=== PATIENT | male | born 1950 | race Two or more races ===

== ENCOUNTER 2021-02-20 15:23 | Inpatient (IN) | payer OTHER ==
[~2021-02-20] VITALS: Ht 175.3 cm; Wt 75.3 kg
--- NOTE | 2021-02-20 15:40 | NUR ---
The patient is [id number], from home, noticed blood in the urine x 1 month. Denies pain. No bladder distension noted. Will continue to monitor the patient.
[2021-02-20] MEDS ORDERED: LIDOCAINE 2% JEL UROJET 10 ML MM ONE (16:00)
[2021-02-20] MEDS ORDERED: IV NS 0.9% 1,000 ML IV ONE (16:00)
[2021-02-20 16:46] LABS: BASOPHILS % (AUTO) 0.4 % (0.0-2.0); EOSINOPHILS % (AUTO) 2.3 % (0.0-6.0); HEMATOCRIT 36 % (39-51); HEMOGLOBIN 11.5 g/dL (13.5-17.5); LYMPHOCYTES # (AUTO) 1.8 K/uL (0.8-4.8); LYMPHOCYTES % (AUTO) 18.6 % (20.0-44.0); MEAN CORPUSCULAR HGB CONC 32 g/dl (31.0-36.0); MEAN CORPUSCULAR VOLUME 103 fL (80-96); MONOCYTES # (AUTO) 0.6 K/uL (0.1-1.30); MONOCYTES % (AUTO) 6.5 % (2.0-12.0); NEUTROPHILS % (AUTO) 72.2 % (43.0-81.0); PLATELET COUNT (AUTO) 125 K/uL (150-450); WHITE BLOOD COUNT (AUTO) 9.7 K/uL (4.3-11.0)
--- NOTE | 2021-02-20 16:54 | NUR ---
CALLED NURSING SUP REGARDING MID LINE FOR PT.
--- NOTE | 2021-02-20 17:23 | NUR ---
URINE COLLECTED AND SENT TO THE LAB
[2021-02-20 17:31] LABS: ALANINE AMINOTRANSFERASE 17 U/L (12-78); ALBUMIN 3.5 g/dL (3.4-5.0); ALKALINE PHOSPHATASE 99 U/L (46-116); ASPARTATE AMINOTRANSFERASE 12 U/L (15-37); BILIRUBIN,DIRECT 0.1 mg/dL (0.0-0.2); BILIRUBIN,TOTAL 0.5 mg/dL (0.2-1.0); CALCIUM, SERUM 8.7 mg/dL (8.5-10.1); CARBON DIOXIDE 12 mmol/L (21-32); CHLORIDE 113 mmol/L (98-107); CREATININE 2.1 mg/dL (0.6-1.3); GLUCOSE 109 mg/dL (74-106); LIPASE 386 U/L (73-393); POTASSIUM 4.4 mmol/L (3.5-5.1); SODIUM SERUM 138 mmol/L (136-145); TOTAL PROTEIN, SERUM 6.7 g/dL (6.4-8.2); UREA NITROGEN, BLOOD 51 mg/dL (7-18)
--- NOTE | 2021-02-20 17:34 | NUR ---
CT ABDOMEN PELVIC WO PER DR BERMEO DUE TO CREATININE 2.1. RADIOLOGIST MADE AWARE.
[2021-02-20 17:41] LABS: BILIRUBIN,URINE SMALL (NEGATIVE); COLOR,URINE BROWN (YELLOW); LEUKOCYTE ESTERASE ,URINE MODERATE (NEGATIVE); NITRITE, URINE NEGATIVE (NEGATIVE); PROTEIN,URINE 100 mg/dl (NEGATIVE); UGLUCOSE NEGATIVE (NEGATIVE); UROBILINOGEN,URINE 0.2 EU/dL (0.2)
[2021-02-20 18:38] LABS: MUCUS,URINE Moderate /LPF (None Seen); RBC,URINE 51-80 /HPF (0-2); WBC,URINE 21-50 /HPF (0-3)
[2021-02-20 18:39] LABS: BACTERIA,URINE 3+ /HPF (None Seen); SQUAMOUS EPITHELIAL CELL,UR 0-2 /HPF (None Seen)
[2021-02-20] MEDS ORDERED: CEPH500C2 PO (18:46)
[2021-02-20] MEDS ORDERED: ASPI-1420 PO (18:46)
[2021-02-20] MEDS ORDERED: FOLI0.4T6 PO (18:46)
[2021-02-20] MEDS ORDERED: WARF-68 PO (18:46)
[2021-02-20] MEDS ORDERED: CARV25TA2 PO (18:46)
[2021-02-20] MEDS ORDERED: ATOR10TA PO (18:46)
[2021-02-20] MEDS ORDERED: LOSA25TA27 PO (18:46)
[2021-02-20] MEDS ORDERED: CEFTRIAXONE 1 G in IV D5W 50 ML IV ONE (19:00)
--- NOTE | 2021-02-20 19:14 | NUR ---
COVID SWAB DONE AND SENT TO THE LAB
[2021-02-20 19:19] LABS: BAND % (MANUAL) 1 % (0.0-5.0); EOSINOPHILS % (MANUAL) 1 % (0-4); LYMPHOCYTES % (MANUAL) 14 % (16-48); MONOCYTES % (MANUAL) 3 % (0-11.0); NEUTROPHILS % (MANUAL) 81 (42-76)
[2021-02-20] MEDS ORDERED: CEFTRIAXONE 1GM BAG (ER ONLY) 50 ML IV ONE (19:21)
--- NOTE | 2021-02-20 19:32 | NUR ---
report given to nurse Kitchen
[2021-02-20] MEDS ORDERED: ZOLPIDEM TARTRATE 5 MG TABLET PO PRN (22:30)
[2021-02-20] MEDS ORDERED: ACETAMINOPHEN 325 MG TABLET PO PRN (22:30)
[2021-02-20] MEDS ORDERED: Z GUARD REMEDY 2 OZ OINT TP PRN (22:30)
[2021-02-20] MEDS ORDERED: HYDROCODONE/APAP 5/325MG TABLET PO PRN (22:30)
[2021-02-20] MEDS ORDERED: ONDANSETRON HCL/PF 4 MG/2 ML VIAL IVP PRN (22:30)
--- NOTE | 2021-02-21 00:06 | NUR ---
RICK GLUING MACHINE OPERATOR AUTOMATIC [phone] DIRECT LINE
--- NOTE | 2021-02-21 00:30 | NUR ---
MRSA SWAB COLLECTED AND SENT TO LAB. PATIENT'S BELONGINGS LIST DONE.
--- NOTE | 2021-02-21 00:43 | NUR ---
PER RICK, SENIOR ACCOUNTING SPECIALIST, PT IS AUTHORIZED TO STAY HERE/ AUTH NUMBER# [id number]
--- NOTE | 2021-02-21 01:00 | NUR ---
report given to alvino (wen).
--- NOTE | 2021-02-21 01:31 | NUR ---
pt transferred to 3w.
[2021-02-21 02:15] VITALS: BP 106/61
--- NOTE | 2021-02-21 02:15 | NUR ---
MS BINDERY HELPER NOTE PATIENT WAS RECEIVED AWAKE, BROUGHT TO 3W BY CAROL FROM ER. PATIENT IS A [place]ONG[place] SPEAKER. PATIENT IS A/OX4. NO S/S OF DISTRESS; BREATHING IS SYMMETRICAL. MILD PAIN NOTED AT A 4/10 R/T HIS ADMITTING DX OF HEMATURIA, UTI. PATIENT WAS ORIENTED TO THE UNIT, GIVEN CALL JOHNSON AND EDUCATED ON HOW TO USE IT FOR ANY AND ALL NEEDS PLUS TV USE. NO IVF CURRENTLY, BUT PATIENT DOES HAVE A JANA MIDLINE & RT HAND IV SL #20G. PATIENT'S SKIN IS CLEAN, DRY AND INTACT. LEFT LOWER LEG PROSTHESIS NOTED UPON ASSESSMENT. PATIENT'S BELONGINGS ACCOUNTED FOR. SAFETY MEASURES FOLLOWED: BED AT LOWEST POSITION, RAILS UP X2, CALL JOHNSON WITHIN REACH.
[2021-02-21 04:05] VITALS: BP 106/61
[2021-02-21] MEDS: IV 1/2NS 1000 ML 1,000 ML IV PRN (05:27)
--- NOTE | 2021-02-21 06:59 | NUR ---
MS RN CLOSING NOTE PATIENT IS ASLEEP IN BED. A/OX4. NO S/S OF DISTRESS; NO CIRCULATORY ISSUES PRESENT. NO PAIN NOTED. PATIENT WAS ABLE TO VOID WITH CLEAR, STRAW YELLOW URINE IN URINAL. SAFETY MEASURES IN PLACE: BED AT LOWEST POSITION, RAILS UP X2, CALL JOHNSON WITHIN REACH. WILL ENDORSE TO NEXT SHIFT FOR MARINA.
[2021-02-21] MEDS ORDERED: PANTOPRAZOLE 40 MG TABLET.DR PO SCH (07:30)
--- NOTE | 2021-02-21 07:30 | NUR ---
RN OPENING NOTE- PATIENT IS AWAKE. A/OX4. NO S/S OF DISTRESS; NO CIRCULATORY ISSUES PRESENT. NO PAIN NOTED. VOIDING IN URINAL. . NO PAIN NOTED. SAFETY MEASURES IN PLACE: BED AT LOWEST POSITION, RAILS UP X2, CALL JOHNSON WITHIN REACH. MONITOR / ASSIST .
[2021-02-21 08:00] VITALS: BP 109/59
[2021-02-21 08:03] LABS: BASOPHILS # (AUTO) 0.1 K/uL (0.0-0.2); BASOPHILS % (AUTO) 0.8 % (0.0-2.0); EOSINOPHILS % (AUTO) 3.6 % (0.0-6.0); HEMATOCRIT 31 % (39-51); HEMOGLOBIN 10.2 g/dL (13.5-17.5); LYMPHOCYTES # (AUTO) 1.9 K/uL (0.8-4.8); LYMPHOCYTES % (AUTO) 27.6 % (20.0-44.0); MEAN CORPUSCULAR HGB CONC 33 g/dl (31.0-36.0); MEAN CORPUSCULAR VOLUME 103 fL (80-96); MONOCYTES # (AUTO) 0.4 K/uL (0.1-1.30); MONOCYTES % (AUTO) 6.1 % (2.0-12.0); NEUTROPHILS # (AUTO) 4.4 K/uL (1.8-8.9); NEUTROPHILS % (AUTO) 61.9 % (43.0-81.0); PLATELET COUNT (AUTO) 109 K/uL (150-450); RED BLOOD CELL COUNT(AUTO) 3.02 MIL/uL (4.5-6.0); WHITE BLOOD COUNT (AUTO) 7.1 K/uL (4.3-11.0)
[2021-02-21] MEDS: CARVEDILOL 6.25 MG TABLET PO SCH ×2 (08:45→17:00)
[2021-02-21] MEDS: FOLIC ACID 1 MG TABLET PO SCH (08:45)
[2021-02-21 08:48] LABS: CALCIUM, SERUM 8.4 mg/dL (8.5-10.1); CHLORIDE 120 mmol/L (98-107); CREATININE 1.7 mg/dL (0.6-1.3); GLUCOSE 99 mg/dL (74-106); MAGNESIUM 2.2 mg/dL (1.8-2.4); PHOSPHORUS 3.4 mg/dL (2.5-4.9); POTASSIUM 4.9 mmol/L (3.5-5.1); SODIUM SERUM 141 mmol/L (136-145); UREA NITROGEN, BLOOD 44 mg/dL (7-18)
[2021-02-21] MEDS: LOSARTAN POTASSIUM 25 MG TABLET PO SCH (09:00)
[2021-02-21 09:35] LABS: CARBON DIOXIDE 9 mmol/L (21-32)
[2021-02-21 16:07] VITALS: BP 99/53
[2021-02-21 17:20] LABS: CALCIUM, SERUM 8.3 mg/dL (8.5-10.1); CARBON DIOXIDE 12 mmol/L (21-32); CHLORIDE 117 mmol/L (98-107); CREATININE 1.7 mg/dL (0.6-1.3); GLUCOSE 105 mg/dL (74-106); POTASSIUM 4.2 mmol/L (3.5-5.1); SODIUM SERUM 138 mmol/L (136-145); UREA NITROGEN, BLOOD 43 mg/dL (7-18)
[2021-02-21] MEDS: ATORVASTATIN 10 MG TABLET PO SCH (17:34)
[2021-02-21] MEDS: CEFTRIAXONE 1 G in IV D5W 50 ML IV SCH (18:15)
--- NOTE | 2021-02-21 18:38 | NUR ---
RN CLOSING NOTE- PATIENT IS AWAKE. A/OX4. NO S/S OF DISTRESS; NO CIRCULATORY ISSUES PRESENT. NO PAIN NOTED. VOIDING IN URINAL. . IV ABX ROCEPHIN INFUSED. IVF JANA MIDLINE - 1/2 NS AT 75/HR. NO PAIN NOTED. SAFETY MEASURES IN PLACE: BED AT LOWEST POSITION, RAILS UP X2, CALL JOHNSON WITHIN REACH. MONITOR / ASSIST .
--- NOTE | 2021-02-21 19:25 | NUR ---
RN OPENING NOTE PATIENT IS AWAKE. A/OX4. NO S/S OF DISTRESS; NO CIRCULATORY ISSUES PRESENT. NO PAIN NOTED.NO RESPIRATORY DISTRESS NOTED.SAFETY MEASURES IN PLACE: BED AT LOWEST POSITION, RAILS UP X2, CALL JOHNSON WITHIN REACH. WILL CONTINUE TO MONITOR.
[2021-02-21 20:00] VITALS: BP 100/54
[2021-02-21 21:38] VITALS: BP 112/65
--- NOTE | 2021-02-22 06:35 | NUR ---
RN CLOSING NOTE PATIENT IS AWAKE. A/OX4. NO S/S OF DISTRESS; NO CIRCULATORY ISSUES PRESENT. NO PAIN NOTED. VOIDING IN URINAL. . IV ABX ROCEPHIN INFUSED. IVF JANA MIDLINE - 1/2 NS AT 75/HR. NO PAIN NOTED. SAFETY MEASURES IN PLACE: BED AT LOWEST POSITION, RAILS UP X2, CALL JOHNSON WITHIN REACH. WILL ENDORSE CARE TO DAY SHIFT NURSE.
--- NOTE | 2021-02-22 07:21 | NUR ---
MS RN OPENING NOTE RECEIVED PATIENT AWAKE. PATIENT IS A/OX4. PATIENT IS BREATHING EVENLY AND NONLABORED ON ROOM AIR. NO S/S OF DISTRESS; NO PAIN NOTED. PATIENT HAS IV ACCESS ON JANA MIDLINE RUNNING 1/2 NS @ 75 ML/HR. NOTED.SAFETY MEASURES IN PLACE: BED AT LOWEST POSITION, RAILS UP X2, CALL JOHNSON WITHIN REACH. WILL CONTINUE TO MONITOR.
[2021-02-22] MEDS: CARVEDILOL 6.25 MG TABLET PO SCH ×2 (08:38→16:39)
[2021-02-22] MEDS: LOSARTAN POTASSIUM 25 MG TABLET PO SCH (08:38)
[2021-02-22] MEDS: FOLIC ACID 1 MG TABLET PO SCH (08:39)
[2021-02-22 09:31] LABS: CALCIUM, SERUM 8.2 mg/dL (8.5-10.1); CHLORIDE 117 mmol/L (98-107); CREATININE 1.8 mg/dL (0.6-1.3); GLUCOSE 98 mg/dL (74-106); POTASSIUM 4.1 mmol/L (3.5-5.1); SODIUM SERUM 137 mmol/L (136-145); UREA NITROGEN, BLOOD 40 mg/dL (7-18)
[2021-02-22 09:40] LABS: CARBON DIOXIDE 8 mmol/L (21-32)
--- NOTE | 2021-02-22 09:46 | NUR ---
RN NOTE RECEIVED CALL FROM LAB WITH CRITICAL VALUE OF CO2 8, NOTIFIED, NO NEW ORDER AT THIS TIME.
[2021-02-22 12:59] LABS: BASOPHILS % (AUTO) 0.4 % (0.0-2.0); EOSINOPHILS % (AUTO) 3.6 % (0.0-6.0); HEMATOCRIT 33 % (39-51); HEMOGLOBIN 10.3 g/dL (13.5-17.5); LYMPHOCYTES # (AUTO) 1.9 K/uL (0.8-4.8); LYMPHOCYTES % (AUTO) 28.6 % (20.0-44.0); MEAN CORPUSCULAR HGB CONC 31 g/dl (31.0-36.0); MEAN CORPUSCULAR VOLUME 105 fL (80-96); MONOCYTES # (AUTO) 0.4 K/uL (0.1-1.30); MONOCYTES % (AUTO) 6.3 % (2.0-12.0); NEUTROPHILS # (AUTO) 4.2 K/uL (1.8-8.9); NEUTROPHILS % (AUTO) 61.1 % (43.0-81.0); PLATELET COUNT (AUTO) 109 K/uL (150-450); RED BLOOD CELL COUNT(AUTO) 3.11 MIL/uL (4.5-6.0); WHITE BLOOD COUNT (AUTO) 6.8 K/uL (4.3-11.0)
[2021-02-22] MEDS: IV 1/2NS 1000 ML 1,000 ML IV PRN (13:41)
[2021-02-22] MEDS: ATORVASTATIN 10 MG TABLET PO SCH (17:01)
[2021-02-22] MEDS: CEFTRIAXONE 1 G in IV D5W 50 ML IV SCH (18:00)
--- NOTE | 2021-02-22 18:29 | NUR ---
MS RN CLOSING NOTE PATIENT IS A/OX4. PATIENT IS BREATHING EVENLY AND NONLABORED ON ROOM AIR. NO S/S OF DISTRESS; NO PAIN NOTED. PATIENT HAS IV ACCESS ON JANA MIDLINE RUNNING 1/2 NS @ 75 ML/HR. ALL MEDICATIONS GIVEN ORDERED. SAFETY MEASURES IN PLACE: BED AT LOWEST POSITION, RAILS UP X2, CALL JOHNSON WITHIN REACH. WILL ENDORSE TO ONCOMING SHIFT
--- NOTE | 2021-02-22 19:53 | NUR ---
MS RN NURSE OPENING NOTE PATIENT RECEIVED AWAKE, SITTING UP IN BED. HE IS IN A PLEASANT MOOD - CAME TO VISIT HIM. PATIENT IS A/OX4. PATIENT HAS JANA MID 1/2NS 75ML/HR. SKIN IS INTACT THROUGHOUT. NO S/S OF DISTRESS. NO PAIN NOTED. CAP REFILL <3 SECS, NO ABRASIONS. SAFETY MEASURES FOLLOWED: BED AT LOWEST POSITION, RAILS UP X2, CALL JOHNSON WITHIN REACH. PATIENT WILL BE MONITORED THROUGHOUT SHIFT.
[2021-02-22 20:00] VITALS: BP 112/49
[2021-02-23] MEDS: IV 1/2NS 1000 ML 1,000 ML IV PRN (03:51)
--- NOTE | 2021-02-23 07:20 | NUR ---
MS RN CLOSING NOTE PATIENT AWAKE IN BED. A/OX4. NO S/S OF DISTRESS. BREATHING SYMMETRICAL. CAP REFILL <3 SECS. JANA MID PATENT. SAFETY MEASURES IN PLACE: BED AT LOWEST POSITION, RAILS UP X2, CALL JOHNSON WITHIN REACH. WILL ENDORSE TO THE NEXT SHIFT FOR MARINA.
--- NOTE | 2021-02-23 07:30 | NUR ---
MS RN NURSE OPENING NOTE PATIENT RECEIVED SITTING ON BED, AWAKE AND A/O X4. ON ROOM AIR TOLERATING WELL. NO SOB NOTED. NOT IN DISTRESS. WITH NO COMPLAINTS OF PAIN AT THIS TIME. WITH RIGHT UPPER ARM MIDLINE, INTACT AND PATENT. SAFETY MEASURES IN PLACE: BED ON LOWEST LOCKED POSITION, SIDE RAILS UP X2, CALL LIGHT WITHIN REACH. WILL CONTINUE TO MONITOR.
[2021-02-23] MEDS: FOLIC ACID 1 MG TABLET PO SCH (08:40)
[2021-02-23 09:00] VITALS: BP 100/51
[2021-02-23] MEDS: CARVEDILOL 6.25 MG TABLET PO SCH (09:00)
[2021-02-23] MEDS: LOSARTAN POTASSIUM 25 MG TABLET PO SCH (09:00)
[2021-02-23 11:17] LABS: BASOPHILS % (AUTO) 0.4 % (0.0-2.0); EOSINOPHILS % (AUTO) 3.7 % (0.0-6.0); HEMATOCRIT 34 % (39-51); HEMOGLOBIN 11.1 g/dL (13.5-17.5); LYMPHOCYTES # (AUTO) 2.1 K/uL (0.8-4.8); LYMPHOCYTES % (AUTO) 32.6 % (20.0-44.0); MEAN CORPUSCULAR HGB CONC 32 g/dl (31.0-36.0); MEAN CORPUSCULAR VOLUME 103 fL (80-96); MONOCYTES # (AUTO) 0.4 K/uL (0.1-1.30); MONOCYTES % (AUTO) 6.5 % (2.0-12.0); NEUTROPHILS # (AUTO) 3.7 K/uL (1.8-8.9); NEUTROPHILS % (AUTO) 56.8 % (43.0-81.0); PLATELET COUNT (AUTO) 122 K/uL (150-450); RED BLOOD CELL COUNT(AUTO) 3.33 MIL/uL (4.5-6.0); WHITE BLOOD COUNT (AUTO) 6.5 K/uL (4.3-11.0)
[2021-02-23 12:00] LABS: CARBON DIOXIDE 11 mmol/L (21-32); CHLORIDE 120 mmol/L (98-107); CREATININE 1.7 mg/dL (0.6-1.3); GLUCOSE 104 mg/dL (74-106); POTASSIUM 3.7 mmol/L (3.5-5.1); SODIUM SERUM 143 mmol/L (136-145); UREA NITROGEN, BLOOD 36 mg/dL (7-18)
--- NOTE | 2021-02-23 15:48 | NUR ---
MS CHEMICAL PROCESS OPERATOR NOTES PATIENT IS FOR DISCHARGE PER DOCTOR'S ORDER. DISCHARGE INSTRUCTION AND EDUCATION PROVIDED TO PATIENT AND EXPLAINED MEDICATIONS AND PRESCRIPTIONS. PATIENT VERBALIZED UNDERSTANDING. DISCHARGE FOR AND BELONGINGS LIST FORM SIGNED BY PATIENT. ALL BELONGINGS ACCOUNTED FOR. NAME WRIST BAND AND IV LINE REMOVED. ACCOMPANIED PATIENT TO THE LOBBY VIA WHEELCHAIR. PATIENT WAS PICKED UP BY DAUGHTER VIA PRIVATE CAR IN STABLE CONDITION. CHARGE NURSE AND MD ARE AWARE OF THE DISCHARGE.
== END 2021-02-23 16:00 | disposition home or self-care (01) | DRG 690 ==
LOC: ER 15:27 → MERGE 02-21 00:46 → MED 02-21 00:46
PROVIDERS: ATTEND Family Medicine
PROC: 05H933Z Insertion of Infusion Device into Right Brachial Vein, Percutaneous Approach (ICD-10-PCS; principal; 2021-02-21)
DX: N30.01 Acute cystitis with hematuria (principal); N17.9 Acute kidney failure, unspecified; K91.2 Postsurgical malabsorption, not elsewhere classified; D68.9 Coagulation defect, unspecified; E87.2 Acidosis; Z20.822 Contact with and (suspected) exposure to COVID-19; K43.2 Incisional hernia without obstruction or gangrene; K40.20 Bilateral inguinal hernia, without obstruction or gangrene, not specified as recurrent; E78.5 Hyperlipidemia, unspecified; I12.9 Hypertensive chronic kidney disease with stage 1 through stage 4 chronic kidney disease, or unspecified chronic kidney disease; I25.10 Atherosclerotic heart disease of native coronary artery without angina pectoris; D63.8 Anemia in other chronic diseases classified elsewhere; N20.0 Calculus of kidney; N18.9 Chronic kidney disease, unspecified; Y84.9 Medical procedure, unspecified as the cause of abnormal reaction of the patient, or of later complication, without mention of misadventure at the time of the procedure; Y82.8 Other medical devices associated with adverse incidents; Y92.9 Unspecified place or not applicable; V89.2XXS Person injured in unspecified motor-vehicle accident, traffic, sequela; Z79.82 Long term (current) use of aspirin; Z79.01 Long term (current) use of anticoagulants; Z79.899 Other long term (current) drug therapy; D69.6 Thrombocytopenia, unspecified; D53.9 Nutritional anemia, unspecified; I48.91 Unspecified atrial fibrillation; I70.0 Atherosclerosis of aorta; D73.4 Cyst of spleen; T45.515A Adverse effect of anticoagulants, initial encounter; Z96.643 Presence of artificial hip joint, bilateral
CPT/HCPCS: 36415; 80048-TC; 80076-TC; 81001; 83605-TC; 83690-TC; 83735-TC; 84100-TC; 85025-TC; 85730-TC; 87081-TC; 87086-TC; C9803; G0378; J0696; J3490; J7030; J7060; J7120